=== PATIENT | female | born 1995 | race Caucasian/White ===

== ENCOUNTER 2018-07-05 17:50 | Emergency (ER) | payer OTHER ==
[2018-07-05] MEDS ORDERED: Zofran 4 MG/2 ML VIAL IV ONE ×2 (18:11→20:41)
[2018-07-05] MEDS ORDERED: MORPHINE SULFATE 10 MG/ML IV ONE (18:11)
[2018-07-05] MEDS ORDERED: Sodium Chloride 0.9% 1000 ML 1,000 ML IV STA (18:11)
[2018-07-05] MEDS ORDERED: Sodium Chloride 0.9% 1000 ML 1,000 ML ONE (18:15)
[2018-07-05] MEDS ORDERED: MORPHINE SULFATE 10 MG/ML ONE (18:15)
[2018-07-05] MEDS ORDERED: Zofran 4 MG/2 ML VIAL ONE ×2 (18:15→20:42)
[2018-07-05 18:20] LABS: BASOPHIL % 0.2 % (0.0-0.4); Basophil (Absolute #) 0.02 (0-0.4); Eosinophil % 2.7 % (0.00-5.0); Eosinophil (Absolute #) 0.25 (0-0.5); Granulocyte Absolute (ANC) 6.68 (1.4-6.9); Granulocytes % 73.1 % (36.0-66.0); Hematocrit 40.2 % (35-47); Hemoglobin 13.5 gm/dl (12.0-16.0); Lymphocyte (Absolute #) 1.53 (1.0-4.6); Lymphocytes % 16.7 % (24.0-44.0); Mean Cell Volume 89.3 fl (78-100); Mean Corpuscular Hgb Concent. 33.6 g/dl (32-36); Mean Platelet Volume 10.2 fl (6-9.5); Monocyte (Absolute #) 0.67 (0.0-1.3); Monocytes % 7.3 % (0.0-12.0); Platelet Count 388 K/mm3 (150-450); Red Cell Distribution Width 13.3 % (11.5-14.0); White Blood Count 9.2 K/mm3 (4.0-10.5)
--- NOTE | 2018-07-05 18:20 | ERPHSYRPT ---
- History of Present Illness Time Seen by Provider: 07/05/18 18:05 Historian: patient Exam Limitations: clinical condition Patient Subjective Stated Complaint: C/O SUDDEN ONSET OF RIGHT FLANK PAIN AT 3PM TODAY, NO FEVER. Triage Nursing Assessment: PT ALERT, RESP EASY, SKIN W/D/P, NO EDEMA,ABD SOFT NONTENDER Physician History: PATIENT COMPLAINS OF ACUTE ONSET OF RIGHT FLANK PAIN X 4-5 HOURS ASSOCIATED WITH FREQUENCY AND URGENCY OF URINATION, NAUSEA. DENIES FEVER, CHILLS, EMESIS OR DIARRHEA. Timing/Duration: today Activities at Onset: none Quality: sharpness, stabbing Abdominal Pain Onset Location: flank (RIGHT FLANK) Pain Radiation: no radiation Severity of Pain-Max: moderate Severity of Pain-Current: moderate Modifying Factors: Improves With: nothing, urinating Associated Symptoms: nausea Previous symptoms: no prior history Allergies/Adverse Reactions: No Known Drug Allergies Allergy (Verified 07/05/18 18:04) Home Medications: Ethinyl Estradiol/Drospirenone [Drospirenone-Ee 3-0.03 mg Tab] 1 ea DAILY [History] Hx Tetanus, Diphtheria Vaccination/Date Given: Yes Hx Influenza Vaccination/Date Given: No Hx Pneumococcal Vaccination/Date Given: No Immunizations Up to Date: Yes - Review of Systems Constitutional: No Fever, No Chills Eyes: No Symptoms Ears, Nose, & Throat: No Symptoms Respiratory: No Cough, No Dyspnea Cardiac: No Chest Pain, No Edema, No Syncope Abdominal/Gastrointestinal: Abdominal Pain, No Nausea, No Vomiting, No Diarrhea Genitourinary Symptoms: Frequency, Urgency, No Dysuria Musculoskeletal: No Symptoms, No Back Pain, No Neck Pain Skin: No Rash Neurological: No Dizziness, No Focal Weakness, No Sensory Changes Psychological: No Symptoms Endocrine: No Symptoms All Other Systems: Reviewed and Negative - Past Medical History Pertinent Past Medical History: No - Past Surgical History Past Surgical History: Yes Other Surgical History: TONSILECTOMY - Social History Smoking Status: Never smoker Exposure to second hand smoke: No Drug Use: none Patient Lives Alone: No - Female History Hx Last Menstrual Period: NOW Hx Now: No - Nursing Vital Signs Nursing Vital Signs: Initial Vital Signs Temperature 98.4 F 07/05/18 17:52 Pulse Rate 75 07/05/18 17:52 Respiratory Rate 18 07/05/18 17:52 Blood Pressure 147/110 07/05/18 17:52 O2 Sat by Pulse Oximetry 95 07/05/18 17:52 Pain Scale Pain Intensity 0 - Physical Exam General Appearance: mild distress, alert Eye Exam: PERRL/EOMI, eyes nml inspection Ears, Nose, Throat Exam: normal ENT inspection, pharynx normal, moist mucous membranes Neck Exam: normal inspection, non-tender, supple, full range of motion Respiratory Exam: normal breath sounds, lungs clear, No respiratory distress Cardiovascular Exam: regular rate/rhythm, normal heart sounds Gastrointestinal/Abdomen Exam: soft, normal bowel sounds, No tenderness, No mass Back Exam: normal inspection, normal range of motion, CVA tenderness (MODERATE RIGHT CVA TENDERNESS), No vertebral tenderness Extremity Exam: normal inspection, normal range of motion, pelvis stable Neurologic Exam: alert, oriented x 3, cooperative, normal mood/affect, nml cerebellar function, sensation nml, No motor deficits Skin Exam: normal color, warm, dry SpO2: 95 Oxygen Delivery: Room Air - CT Exams Abdomen/Pelvis CT Interpretation: Tele-radiologist Report (TINY BILATERAL RENAL STONES, MILD RIGHT HYDRONEPHROSIS AND HYDROURETER, 2MM RIGHT UVJ STONE) Ordered Tests: Active Orders 24 hr Category Date Time Status Clean Catch Urine Specimen STAT Care 07/05/18 18:11 Active IV Insertion STAT Care 07/05/18 18:10 Active ABDOMEN AND PELVIS W/0 CONTRAS [CT] Stat Exams 07/05/18 18:12 Taken AMYLASE Stat Lab 07/05/18 18:15 Completed CBC W DIFF Stat Lab 07/05/18 18:15 Completed CMP Stat Lab 07/05/18 18:15 Completed HCG,QUALITATIVE URINE Stat Lab 07/05/18 19:02 Completed LIPASE Stat Lab 07/05/18 18:15 Completed UA W/RFX UR CULTURE Stat Lab 07/05/18 19:02 Completed Medication Summary Generic Name Dose Route Start Last Admin Trade Name Freq PRN Reason Stop Dose Admin Tamsulosin HCl 0.4 mg 07/06/18 20:30 Flomax 0.4 Mg PO 07/06/18 20:31 STAT ONE Discontinued Medications Generic Name Dose Route Start Last Admin Trade Name Freq PRN Reason Stop Dose Admin Hydromorphone HCl 1 mg 07/05/18 19:00 07/05/18 19:04 Hydromorphone 1 Mg/Ml Ampule IV 07/05/18 19:01 1 mg STAT ONE Administration Hydromorphone HCl Confirm 07/05/18 19:02 Hydromorphone 1 Mg/Ml Ampule Administered 07/05/18 19:03 Dose 1 mg .ROUTE .STK-MED ONE Sodium Chloride 1,000 mls @ 999 mls/hr 07/05/18 18:11 07/05/18 19:22 Sodium Chloride 0.9% 1000 Ml IV 07/05/18 19:11 Infused .Q1H1M STA Infusion Sodium Chloride Confirm 07/05/18 18:15 Sodium Chloride 0.9% 1000 Ml Administered 07/05/18 18:16 Dose 1,000 mls @ ud .ROUTE .STK-MED ONE Morphine Sulfate 6 mg 07/05/18 18:11 07/05/18 18:21 Morphine Sulfate 10 Mg/Ml IV 07/05/18 18:12 6 mg STAT ONE Administration Morphine Sulfate Confirm 07/05/18 18:15 Morphine Sulfate 10 Mg/Ml Administered 07/05/18 18:16 Dose 10 mg .ROUTE .STK-MED ONE Ondansetron HCl 4 mg 07/05/18 18:11 07/05/18 18:22 Zofran 4 Mg/2 Ml Vial IV 07/05/18 18:12 4 mg STAT ONE Administration Ondansetron HCl Confirm 07/05/18 18:15 Zofran 4 Mg/2 Ml Vial Administered 07/05/18 18:16 Dose 4 mg .ROUTE .STK-MED ONE Lab/Rad Data: Laboratory Result Diagrams 07/05/18 18:15 07/05/18 18:15 Laboratory Results 07/05/18 07/05/18 07/05/18 Range/Units 19:02 19:02 18:15 WBC (4.0-10.5) K/mm3 RBC (4.1-5.4) M/mm3 Hgb (12.0-16.0) gm/dl Hct (35-47) % MCV (78-100) fl MCH (26-32) pg MCHC (32-36) g/dl RDW (11.5-14.0) % Plt Count (150-450) K/mm3 MPV (6-9.5) fl Gran % (36.0-66.0) % Eos # (Auto) (0-0.5) Absolute Lymphs (auto) (1.0-4.6) Absolute Monos (auto) (0.0-1.3) Lymphocytes % (24.0-44.0) % Monocytes % (0.0-12.0) % Eosinophils % (0.00-5.0) % Basophils % (0.0-0.4) % Absolute Granulocytes (1.4-6.9) Basophils # (0-0.4) Sodium 140 (137-145) mmol/L Potassium 4.3 (3.5-5.1) mmol/L Chloride 107 (98-107) mmol/L Carbon Dioxide 23 (22-30) mmol/L Anion Gap 13.7 (5-15) MEQ/L BUN 14 (7-17) mg/dL Creatinine 0.89 (0.52-1.04) mg/dL Estimated GFR > 60.0 ML/MIN Glucose 108 H (74-106) mg/dL Calcium 10.2 (8.4-10.2) mg/dL Total Bilirubin 0.30 (0.2-1.3) mg/dL AST 21 (14-36) U/L ALT 17 (0-35) U/L Alkaline Phosphatase 59 (38-126) U/L Serum Total Protein 7.1 (6.3-8.2) g/dL Albumin 4.4 (3.5-5.0) g/dL Amylase 52 (30-110) U/L Lipase 53 (23-300) U/L Urine Color YELLOW (YELLOW) Urine Appearance CLEAR (CLEAR) Urine pH 5.0 (5-6) Ur Specific [place] 1.030 (1.005-1.025) Urine Protein NEGATIVE (Negative) Urine Ketones NEGATIVE (NEGATIVE) Urine Blood SMALL (0-5) Bill/ul Urine Nitrite NEGATIVE (NEGATIVE) Urine Bilirubin NEGATIVE (NEGATIVE) Urine Urobilinogen NEGATIVE (0-1) mg/dL Ur Leukocyte Esterase NEGATIVE (NEGATIVE) Urine WBC (Auto) 0-2 (0-5) /HPF Urine RBC (Auto) 6-10 (0-2) /HPF U Epithel Cells (Auto) FEW (FEW) /HPF Urine Bacteria (Auto) NONE SEEN (NEGATIVE) /HPF Urine Mucus (Auto) MODERATE (NEGATIVE) /HPF Urine Culture Reflexed NO (NO) Urine Glucose NEGATIVE (NEGATIVE) mg/dL Urine HCG, Qual NEGATIVE (Negative) 07/05/18 Range/Units 18:15 WBC 9.2 (4.0-10.5) K/mm3 RBC 4.50 (4.1-5.4) M/mm3 Hgb 13.5 (12.0-16.0) gm/dl Hct 40.2 (35-47) % MCV 89.3 (78-100) fl MCH 30.0 (26-32) pg MCHC 33.6 (32-36) g/dl RDW 13.3 (11.5-14.0) % Plt Count 388 (150-450) K/mm3 MPV 10.2 H (6-9.5) fl Gran % 73.1 H (36.0-66.0) % Eos # (Auto) 0.25 (0-0.5) Absolute Lymphs (auto) 1.53 (1.0-4.6) Absolute Monos (auto) 0.67 (0.0-1.3) Lymphocytes % 16.7 L (24.0-44.0) % Monocytes % 7.3 (0.0-12.0) % Eosinophils % 2.7 (0.00-5.0) % Basophils % 0.2 (0.0-0.4) % Absolute Granulocytes 6.68 (1.4-6.9) Basophils # 0.02 (0-0.4) Sodium (137-145) mmol/L Potassium (3.5-5.1) mmol/L Chloride (98-107) mmol/L Carbon Dioxide (22-30) mmol/L Anion Gap (5-15) MEQ/L BUN (7-17) mg/dL Creatinine (0.52-1.04) mg/dL Estimated GFR ML/MIN Glucose (74-106) mg/dL Calcium (8.4-10.2) mg/dL Total Bilirubin (0.2-1.3) mg/dL AST (14-36) U/L ALT (0-35) U/L Alkaline Phosphatase (38-126) U/L Serum Total Protein (6.3-8.2) g/dL Albumin (3.5-5.0) g/dL Amylase (30-110) U/L Lipase (23-300) U/L Urine Color (YELLOW) Urine Appearance (CLEAR) Urine pH (5-6) Ur Specific [place] (1.005-1.025) Urine Protein (Negative) Urine Ketones (NEGATIVE) Urine Blood (0-5) Bill/ul Urine Nitrite (NEGATIVE) Urine Bilirubin (NEGATIVE) Urine Urobilinogen (0-1) mg/dL Ur Leukocyte Esterase (NEGATIVE) Urine WBC (Auto) (0-5) /HPF Urine RBC (Auto) (0-2) /HPF U Epithel Cells (Auto) (FEW) /HPF Urine Bacteria (Auto) (NEGATIVE) /HPF Urine Mucus (Auto) (NEGATIVE) /HPF Urine Culture Reflexed (NO) Urine Glucose (NEGATIVE) mg/dL Urine HCG, Qual (Negative) - Progress Progress: improved Progress Note: 07/05/18 20:27 IV NORMAL SALINE 1 LITER OVER 1 HOUR, MORPHINE 6MG, IV, NO RELIEF, DILAUDID 1MG IV, COMPLETE OF PAIN Counseled pt/family regarding: lab results, diagnosis, need for follow-up, rad results - Departure Time of Disposition: 20:35 Departure Disposition: Home Clinical Impression: DISTAL RIGHT URETER STONE Condition: Stable Critical Care Time: No Referrals: NANCIE ONEIL, JOSE CRUZ [Primary Care Provider] - Additional Instructions: VOID THROUGH STRAINER FOR 4 DAYS. NORCO 10/325 EVERY 6 HOURS FOR SEVERE PAIN AND TORADOL 10MG EVERY 6 HOURS FOR MILD TO MODERATE PAIN. ZOFRAN 4MG EVERY 6 HOURS FOR NAUSEA. FLOMAX 0.4MG DAILY FOR 10 DAYS. RETURN TO EMERGENCY ROOM FOR INCREASING PAIN. CONSULT UROLOGIST DR GOMEZ FOR RECURRENCE OF PAIN. Prescriptions: Hydrocodone/APAP 10/325 mg [[place] 10/325 MG Tablet] 1 tab PO Q6H PRN PRN # 12 tablet MDD 4 PRN Reason: Pain Ketorolac Tromethamine [Toradol] 10 mg PO Q6H PRN PRN #20 tablet PRN Reason: Pain Ondansetron ODT 4 MG [Zofran Odt 4 mg] 4 mg PO Q6H PRN PRN #10 tab.rapdis PRN Reason: Nausea Tamsulosin HCl 0.4 mg [Flomax 0.4 MG] 1 cap PO DAILY #10 cap
[2018-07-05 18:33] LABS: ALBUMIN 4.4 g/dL (3.5-5.0); ALKALINE PHOSPHATASE 59 U/L (38-126); AMYLASE 52 U/L (30-110); ANION GAP 13.7 MEQ/L (5-15); BLOOD UREA NITROGEN 14 mg/dL (7-17); CHLORIDE 107 mmol/L (98-107); Calcium 10.2 mg/dL (8.4-10.2); Carbon Dioxide 23 mmol/L (22-30); Creatinine 1 0.89 mg/dL (0.52-1.04); Glucose 108 mg/dL (74-106); LIPASE 53 U/L (23-300); Potassium 4.3 mmol/L (3.5-5.1); SGOT/AST 21 U/L (14-36); SGPT/ALT 17 U/L (0-35); SODIUM 140 mmol/L (137-145); Total Protein 7.1 g/dL (6.3-8.2)
[2018-07-05] MEDS ORDERED: Hydromorphone 1 mg/ml Ampule IV ONE (19:00)
[2018-07-05] MEDS ORDERED: Hydromorphone 1 mg/ml Ampule ONE (19:02)
[2018-07-05 19:20] LABS: Appearance CLEAR (CLEAR); Bilirubin NEGATIVE (NEGATIVE); Blood SMALL Ery/ul (0-5); Glucose NEGATIVE (NEGATIVE); Ketones NEGATIVE (NEGATIVE); Leukocyte Esterase NEGATIVE (NEGATIVE); Nitrite NEGATIVE (NEGATIVE); Protein,Urine Dip NEGATIVE (Negative); Urobilinogen NEGATIVE mg/dL (0-1)
[2018-07-05] MEDS ORDERED: Norco 10/325 MG Tablet PO ONE (20:30)
[2018-07-05] MEDS ORDERED: Norco 10/325 MG Tablet ONE (20:36)
[2018-07-05] MEDS ORDERED: Flomax 0.4 MG ONE (20:36)
[2018-07-05 20:49] VITALS: BP 131/95; PULSE 80; O2SAT 98
--- NOTE | 2018-07-06 08:49 | XRAY ---
Indication: Right flank pain. Multiple contiguous axial images obtained through the abdomen and pelvis without contrast as ordered. Comparison: None. Lung bases clear. Heart is not enlarged. Noncontrasted stomach and bowel loops appear nonobstructed. Normal appendix. No free fluid/air. 1-2 mm right UVJ calculus. Proximal right ureter is slightly prominent along with right renal edema and moderate hydronephrosis consistent with obstructive uropathy. Minimal perinephric stranding. Additional bilateral renal micro-calculi. 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 Gallbladder not seen either contracted or surgically absent. Multiple splenules. Remaining liver, pancreas, spleen, adrenal glands, kidneys, ureters, bladder, uterus, and aorta appear unremarkable. Tampon in situ. Osseous structures intact. No ventral or inguinal hernias. Impression: 1. 1-2 mm right UVJ calculus producing obstructive uropathy as detailed. Additional bilateral renal micro-calculi. 2. Remaining CT abdomen/pelvis without contrast exam is negative. Comment: Preliminary interpretation was made by [facility]. No discrepancy. CT DI 20.41
[2018-07-06] MEDS ORDERED: Flomax 0.4 MG PO ONE (20:30)
== END 2018-07-05 20:57 | disposition home or self-care (01) ==
LOC: ED 17:50
DX: N20.1 Calculus of ureter (principal)
CPT/HCPCS: 36000; 36415; 74176; 80053; 81001; 82150; 83690; 84703; 85025; 96360; 96374; 96375; 96376; 99284; J1170; J2270; J2405; A9270-GY

== ENCOUNTER 2021-09-12 18:05 | Emergency (ER) | payer MEDICAID, OTHER ==
[2021-09-12] MEDS ORDERED: Zofran 4 MG/2 ML VIAL ONE (18:14)
[2021-09-12] MEDS ORDERED: TORAdol 30 mg Injection ONE (18:14)
[2021-09-12] MEDS ORDERED: Sodium Chloride 0.9% 1000 ML 1,000 ML ONE (18:20)
[2021-09-12] MEDS: Sodium Chloride 0.9% 1000 ML 1,000 ML IV STA (18:23)
[2021-09-12 18:34] LABS: Absolute Neutrophil Ct (ANC) 6.38 (1.4-6.9); Basophil (Absolute #) 0.04 (0-0.4); Eosinophil % 1.7 % (0.00-5.0); Eosinophil (Absolute #) 0.16 (0-0.5); Hematocrit 41.1 % (35-47); Hemoglobin 13.6 gm/dl (12.0-16.0); Lymphocyte (Absolute #) 1.99 (1.0-4.6); Lymphocytes % 21.4 % (24.0-44.0); Mean Cell Volume 88.2 fl (78-100); Mean Corpuscular Hemoglobin 29.2 pg (26-32); Mean Corpuscular Hgb Concent. 33.1 g/dl (32-36); Mean Platelet Volume 9.6 fl (7.5-11.0); Monocyte (Absolute #) 0.74 (0.0-1.3); Monocytes % 7.9 % (0.0-12.0); Neutrophil % 68.6 % (36.0-66.0); Platelet Count 450 K/mm3 (150-450); Red Blood Count 4.66 M/mm3 (4.1-5.4); Red Cell Distribution Width 13.6 % (11.5-14.0); White Blood Count 9.3 K/mm3 (4.0-10.5)
[2021-09-12] MEDS: Zofran 4 MG/2 ML VIAL IV ONE (18:34)
[2021-09-12] MEDS: TORAdol 30 mg Injection IV ONE (18:34)
[2021-09-12 18:42] LABS: Appearance CLEAR (CLEAR); Bilirubin NEGATIVE (NEGATIVE); Blood MODERATE Ery/ul (0-5); Glucose NEGATIVE (NEGATIVE); Ketones NEGATIVE (NEGATIVE); Leukocyte Esterase NEGATIVE (NEGATIVE); Mucus SLIGHT /HPF (NEGATIVE); Nitrite NEGATIVE (NEGATIVE); Protein,Urine Dip 100 (Negative); Specific Gravity 1.006 (1.005-1.025); Urobilinogen NEGATIVE mg/dL (0-1)
[2021-09-12 18:46] LABS: ALBUMIN 4.5 g/dL (3.5-5.0); ALKALINE PHOSPHATASE 69 U/L (38-126); ANION GAP 15.6 MEQ/L (5-15); BLOOD UREA NITROGEN 11 mg/dL (7-17); CHLORIDE 103 mmol/L (98-107); Calcium 9.7 mg/dL (8.4-10.2); Carbon Dioxide 23 mmol/L (22-30); Creatinine 1 0.71 mg/dL (0.52-1.04); EST GLOMERULAR FILTRATION RATE > 60.0 ML/MIN; Glucose 96 mg/dL (74-106); Potassium 3.9 mmol/L (3.5-5.1); SGOT/AST 19 U/L (14-36); SGPT/ALT 18 U/L (0-35); SODIUM 138 mmol/L (137-145); Total Protein 7.4 g/dL (6.3-8.2)
[2021-09-12] MEDS: MORPHINE SULFATE 4 MG INJ IV ONE (18:46)
[2021-09-12] MEDS ORDERED: MORPHINE SULFATE 4 MG INJ ONE (18:46)
[2021-09-12 19:09] VITALS: O2SAT 99
--- NOTE | 2021-09-12 19:19 | ERPHSYRPT ---
- History of Present Illness Time Seen by Provider: 09/12/21 18:10 Historian: patient Exam Limitations: no limitations Patient Subjective Stated Complaint: pt co left flank pain that radiates around to abd with some vomiting. has hx of kidney stones, was seen in at office today and started on antibotics for UTI Triage Nursing Assessment: pt alert, resp easy, skin w/d/p, face mask on,abd soft Physician History: Patient is 26-year-old female presents to our ED with acute onset left flank pain radiating to left groin. Pain associated with vomiting. Pain described as an ache that is constant. Patient has a history of kidney stones. Patient states pain is similar. Patient states she is currently on antibiotics to treat a UTI. Patient otherwise healthy. She denies trauma. No fever. Symptoms are moderate in intensity. No specific worsening improving factors. Patient otherwise healthy. She voices no other complaints or concerns at this time. Timing/Duration: today Activities at Onset: none Quality: aching Abdominal Pain Onset Location: flank Pain Radiation: groin Severity of Pain-Max: moderate Severity of Pain-Current: mild Associated Symptoms: nausea, vomiting, No fever/chills, No testicular pain, No weakness Previous symptoms: same symptoms as today Allergies/Adverse Reactions: No Known Drug Allergies Allergy (Verified 09/12/21 18:19) Home Medications: Ethinyl Estradiol/Drospirenone [Drospirenone-Ee 3-0.03 mg Tab] 1 ea DAILY 07/05/18 [History] Hx Tetanus, Diphtheria Vaccination/Date Given: Yes Hx Influenza Vaccination/Date Given: No Hx Pneumococcal Vaccination/Date Given: No Immunizations Up to Date: Yes Travel Risk - International Travel Have you traveled outside of the country in past 3 weeks: No - Coronavirus Screening Are you exhibiting any of the following symptoms?: Yes Symptoms: Vomiting/Diarrhea Close contact with a COVID-19 positive Pt in past 14-21 Days: No - Vaccine Status Have you recieved a Covid-19 vaccination: No - Review of Systems Constitutional: No Symptoms, No Fever, No Chills Eyes: No Symptoms Ears, Nose, & Throat: No Symptoms Respiratory: No Symptoms, No Cough, No Dyspnea Cardiac: No Symptoms, No Chest Pain, No Edema, No Syncope Abdominal/Gastrointestinal: No Symptoms, No Abdominal Pain, No Nausea, No Vomiting, No Diarrhea Genitourinary Symptoms: No Symptoms, No Dysuria Musculoskeletal: No Symptoms, No Back Pain, No Neck Pain Skin: No Symptoms, No Rash Neurological: No Symptoms, No Dizziness, No Focal Weakness, No Sensory Changes Psychological: No Symptoms Endocrine: No Symptoms Hematologic/Lymphatic: No Symptoms Immunological/Allergic: No Symptoms All Other Systems: Reviewed and Negative - Past Medical History Pertinent Past Medical History: No - Past Surgical History Past Surgical History: Yes Other Surgical History: TONSILECTOMY - Social History Smoking Status: Never smoker Exposure to second hand smoke: No Drug Use: none Patient Lives Alone: No - Female History Hx Last Menstrual Period: 08/25/21 Hx Now: No - Nursing Vital Signs Nursing Vital Signs: Initial Vital Signs Temperature 97.5 F 09/12/21 18:06 Pulse Rate 103 H 09/12/21 18:06 Respiratory Rate 18 09/12/21 18:06 Blood Pressure 138/107 09/12/21 18:06 O2 Sat by Pulse Oximetry 97 09/12/21 18:06 Pain Scale Pain Intensity 5 - Physical Exam General Appearance: no apparent distress, alert Eye Exam: PERRL/EOMI, eyes nml inspection Ears, Nose, Throat Exam: normal ENT inspection, TMs normal, pharynx normal, moist mucous membranes Neck Exam: normal inspection, non-tender, supple, full range of motion Respiratory Exam: normal breath sounds, lungs clear, airway intact, No chest tenderness, No respiratory distress Cardiovascular Exam: regular rate/rhythm, normal heart sounds, normal peripheral pulses Gastrointestinal/Abdomen Exam: soft, normal bowel sounds, No tenderness, No distention, No mass, No guarding Back Exam: normal inspection, normal range of motion, No CVA tenderness, No vertebral tenderness Extremity Exam: normal inspection, normal range of motion, pelvis stable Neurologic Exam: alert, oriented x 3, cooperative, normal mood/affect, nml cerebellar function, sensation nml, No motor deficits Skin Exam: normal color, warm, dry Lymphatic Exam: No adenopathy SpO2 Interpretation: normal SpO2: 99 O2 Delivery: Room Air - Course Nursing assessment & vital signs reviewed: Yes - CT Exams Abdomen/Pelvis CT Interpretation: Tele-radiologist Report (Compared to 07/05/2018 new 4 to 5 mm left UVJ calculus with mild hydronephrosis. Additional bilateral renal punctate calculus.) Ordered Tests: Active Orders 24 hr Category Date Time Status IV Insertion STAT Care 09/12/21 18:17 Active ABDOMEN AND PELVIS W/0 CONTRAS [CT] Stat Exams 09/12/21 18:18 Taken CBC W DIFF Stat Lab 09/12/21 18:15 Completed CMP Stat Lab 09/12/21 18:15 Completed CULTURE,URINE Stat Lab 09/12/21 18:20 Received HCG,QUALITATIVE URINE Stat Lab 09/12/21 18:20 Completed UA W/RFX UR CULTURE Stat Lab 09/12/21 18:20 Completed Medication Summary Discontinued Medications Generic Name Dose Route Start Last Admin Trade Name Moris PRN Reason Stop Dose Admin Sodium Chloride 1,000 mls @ 999 mls/hr 09/12/21 18:17 09/12/21 19:24 Sodium Chloride 0.9% 1000 Ml IV 09/12/21 19:17 Infused .Q1H1M STA Infusion Sodium Chloride Confirm 09/12/21 18:20 Sodium Chloride 0.9% 1000 Ml Administered 09/12/21 18:21 Dose 1,000 mls @ ud .ROUTE .STK-MED ONE Ketorolac Tromethamine Confirm 09/12/21 18:14 Ketorolac Tromethamine 30 Mg/Ml Inj Administered 09/12/21 18:15 Dose 30 mg .ROUTE .STK-MED ONE Ketorolac Tromethamine 30 mg 09/12/21 18:17 09/12/21 18:34 Ketorolac Tromethamine 30 Mg/Ml Inj IV 09/12/21 18:18 30 mg STAT ONE Administration Morphine Sulfate 4 mg 09/12/21 18:44 09/12/21 18:46 Morphine Sulfate 4 Mg/Ml Injection IV 09/12/21 18:45 4 mg STAT ONE Administration Morphine Sulfate Confirm 09/12/21 18:46 Morphine Sulfate 4 Mg/Ml Injection Administered 09/12/21 18:47 Dose 4 mg .ROUTE .STK-MED ONE Ondansetron HCl Confirm 09/12/21 18:14 Ondansetron Hcl 4 Mg/2 Ml Vial Administered 09/12/21 18:15 Dose 4 mg .ROUTE .STK-MED ONE Ondansetron HCl 4 mg 09/12/21 18:17 09/12/21 18:34 Ondansetron Hcl 4 Mg/2 Ml Vial IV 09/12/21 18:18 4 mg STAT ONE Administration Lab/Rad Data: Laboratory Result Diagrams 09/12/21 18:15 09/12/21 18:15 Laboratory Results 09/12/21 09/12/21 09/12/21 Range/Units 18:20 18:20 18:15 WBC (4.0-10.5) K/mm3 RBC (4.1-5.4) M/mm3 Hgb (12.0-16.0) gm/dl Hct (35-47) % MCV (78-100) fl MCH (26-32) pg MCHC (32-36) g/dl RDW (11.5-14.0) % Plt Count (150-450) K/mm3 MPV (7.5-11.0) fl Gran % (36.0-66.0) % Eos # (Auto) (0-0.5) Absolute Lymphs (auto) (1.0-4.6) Absolute Monos (auto) (0.0-1.3) Lymphocytes % (24.0-44.0) % Monocytes % (0.0-12.0) % Eosinophils % (0.00-5.0) % Basophils % (0.0-0.4) % Absolute Granulocytes (1.4-6.9) Basophils # (0-0.4) Sodium 138 (137-145) mmol/L Potassium 3.9 (3.5-5.1) mmol/L Chloride 103 (98-107) mmol/L Carbon Dioxide 23 (22-30) mmol/L Anion Gap 15.6 H (5-15) MEQ/L BUN 11 (7-17) mg/dL Creatinine 0.71 (0.52-1.04) mg/dL Estimated GFR > 60.0 ML/MIN Glucose 96 (74-106) mg/dL Calcium 9.7 (8.4-10.2) mg/dL Total Bilirubin 0.80 (0.2-1.3) mg/dL AST 19 (14-36) U/L ALT 18 (0-35) U/L Alkaline Phosphatase 69 (38-126) U/L Serum Total Protein 7.4 (6.3-8.2) g/dL Albumin 4.5 (3.5-5.0) g/dL Urine Color YELLOW (YELLOW) Urine Appearance CLEAR (CLEAR) Urine pH 6.0 (5-6) Ur Specific [place] 1.006 (1.005-1.025) Urine Protein 100 (Negative) Urine Ketones NEGATIVE (NEGATIVE) Urine Blood MODERATE (0-5) Bill/ul Urine Nitrite NEGATIVE (NEGATIVE) Urine Bilirubin NEGATIVE (NEGATIVE) Urine Urobilinogen NEGATIVE (0-1) mg/dL Ur Leukocyte Esterase NEGATIVE (NEGATIVE) Urine WBC (Auto) 3-5 (0-5) /HPF Urine RBC (Auto) 6-10 (0-2) /HPF U Epithel Cells (Auto) NONE (FEW) /HPF Urine Bacteria (Auto) NONE (NEGATIVE) /HPF Urine Mucus (Auto) SLIGHT (NEGATIVE) /HPF Urine Culture Reflexed YES (NO) Urine Glucose NEGATIVE (NEGATIVE) mg/dL Urine HCG, Qual NEGATIVE (Negative) 09/12/21 Range/Units 18:15 WBC 9.3 (4.0-10.5) K/mm3 RBC 4.66 (4.1-5.4) M/mm3 Hgb 13.6 (12.0-16.0) gm/dl Hct 41.1 (35-47) % MCV 88.2 (78-100) fl MCH 29.2 (26-32) pg MCHC 33.1 (32-36) g/dl RDW 13.6 (11.5-14.0) % Plt Count 450 (150-450) K/mm3 MPV 9.6 (7.5-11.0) fl Gran % 68.6 H (36.0-66.0) % Eos # (Auto) 0.16 (0-0.5) Absolute Lymphs (auto) 1.99 (1.0-4.6) Absolute Monos (auto) 0.74 (0.0-1.3) Lymphocytes % 21.4 L (24.0-44.0) % Monocytes % 7.9 (0.0-12.0) % Eosinophils % 1.7 (0.00-5.0) % Basophils % 0.4 (0.0-0.4) % Absolute Granulocytes 6.38 (1.4-6.9) Basophils # 0.04 (0-0.4) Sodium (137-145) mmol/L Potassium (3.5-5.1) mmol/L Chloride (98-107) mmol/L Carbon Dioxide (22-30) mmol/L Anion Gap (5-15) MEQ/L BUN (7-17) mg/dL Creatinine (0.52-1.04) mg/dL Estimated GFR ML/MIN Glucose (74-106) mg/dL Calcium (8.4-10.2) mg/dL Total Bilirubin (0.2-1.3) mg/dL AST (14-36) U/L ALT (0-35) U/L Alkaline Phosphatase (38-126) U/L Serum Total Protein (6.3-8.2) g/dL Albumin (3.5-5.0) g/dL Urine Color (YELLOW) Urine Appearance (CLEAR) Urine pH (5-6) Ur Specific [place] (1.005-1.025) Urine Protein (Negative) Urine Ketones (NEGATIVE) Urine Blood (0-5) Bill/ul Urine Nitrite (NEGATIVE) Urine Bilirubin (NEGATIVE) Urine Urobilinogen (0-1) mg/dL Ur Leukocyte Esterase (NEGATIVE) Urine WBC (Auto) (0-5) /HPF Urine RBC (Auto) (0-2) /HPF U Epithel Cells (Auto) (FEW) /HPF Urine Bacteria (Auto) (NEGATIVE) /HPF Urine Mucus (Auto) (NEGATIVE) /HPF Urine Culture Reflexed (NO) Urine Glucose (NEGATIVE) mg/dL Urine HCG, Qual (Negative) - Progress Progress: improved Progress Note: Patient reassessed. Pain improved. BUN and creatinine are within normal limits. Urinalysis negative for UTI. Patient currently on antibiotic for UTI. Proteinuria and microscopic hematuria observed. CT scan reveals a 4 to 5 mm left UVJ calculus with mild hydronephrosis. Also bilateral renal punctate calculus. Patient ready for discharge. No indication for further work-up at this time. Will discharge home. Patient agrees to follow-up with urology within 48 hours for evaluation. Urine strainer provided to patient. Portions of this note were created with voice recognition technology. There may be grammatical, spelling, punctuation or sound alike errors 09/12/21 19:27 A written prescription for Toradol was provided to patient. Flomax prescription was forwarded to patient's pharmacy electronically. Patient given a urine strainer. 09/12/21 19:[address] Ocampo of urology provided to patient. 09/12/21 19:32 Counseled pt/family regarding: lab results, diagnosis, need for follow-up, rad results - Departure Departure Disposition: Home Clinical Impression: Hydronephrosis, Ureterolithiasis, Renal colic on left side, Flank pain, Prote inuria, Microscopic hematuria, Nephrolithiasis Condition: Stable Critical Care Time: No Referrals: NANCIE ONEIL, TECHNICAL ADMINISTRATOR [Primary Care Provider] - Follow up/PCP as directed BRODIE OCAMPO [COURTESY STAFF] - Follow up/PCP as directed Additional Instructions: Discharge/Care Plan BRODY MICHAELS was seen on 09/12/21 in the Emergency Room. The patient was counseled regarding Diagnosis,Lab results, Imaging studies, need for follow up and when to return to the Emergency Room. Prescriptions given: Discharge Note I have spoken with the patient and/or caregivers. I have explained the patient's condition, diagnosis and treatment plan based on the information available to me at this time. I have answered the patient's and/or caregiver's questions and addressed any concerns. The patient and/or caregivers have as good understanding of the patient's diagnosis, condition and treatment plan as can be expected at this point. The vital signs have been stable. The patient's condition is stable and appropriate for discharge from the emergency department. The patient will pursue further outpatient evaluation with the primary care physician or other designated or consulting physician as outlined in the discharge instructions. The patient and/or caregivers are agreeable to this plan of care and follow-up instructions have been explained in detail. The patient and/or caregivers have received these instruction. The patient/and or caregivers are aware that any significant change in condition or worsening of symptoms should prompt an immediate return to this or the closest emergency department or call 911. Prescriptions: Tamsulosin HCl 0.4 mg [Flomax 0.4 MG] 0.4 mg PO DAILY 14 Days #14 cap
[2021-09-12 19:40] VITALS: BP 127/72; PULSE 74
--- NOTE | 2021-09-13 08:43 | XRAY ---
Indication: Left flank pain. Nausea and vomiting. Multiple contiguous images obtained through the abdomen and pelvis without contrast using renal stone protocol. Comparison: July 05, 2018. Lung bases remain clear. Heart not enlarged. 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 New 4-5 mm left UVJ calculus with mild hydronephrosis. Additional punctate calculus in each kidney. Noncontrasted stomach and bowel loops appear nonobstructed. No free fluid/air. Gallbladder not seen either contracted or surgically absent. There remains multiple splenules. Remaining liver, pancreas, spleen, adrenal glands, kidneys, ureters, bladder, uterus, and aorta are unremarkable for noncontrast exam. Osseous structures intact. Impression: New 4-5 mm left UVJ calculus producing partial obstruction. Again additional bilateral renal micro-calculus.
== END 2021-09-12 19:52 | disposition home or self-care (01) ==
LOC: ED 18:05
DX: N13.2 Hydronephrosis with renal and ureteral calculous obstruction (principal); R80.9 Proteinuria, unspecified; R31.29 Other microscopic hematuria; R10.32 Left lower quadrant pain; Z87.442 Personal history of urinary calculi
CPT/HCPCS: 36000; 36415; 74176; 80053; 81001; 84703; 85025; 87086; 96374; 96375; 99284; J1885; J2270; J2405